=== PATIENT | male | born 1950 | race Caucasian/White ===

== ENCOUNTER 2021-12-10 14:52 | Inpatient (IN) | payer MEDICARE, OTHER ==
[~2021-12-10] VITALS: Ht 172.7 cm; Wt 97.5 kg
--- NOTE | 2021-12-10 14:55 | NUR ---
ABBY RA100 FROM [facility] ([facility]) WITH C/O SOB, PT TESTED POSTIVIE FOR COVID-19 PER EMS. PT ARRIVES ON 100% NRB MASK AT O2 15L, PT DIRECTLY TO ROOM 3, AT BEDSIDE FOR MSE.
[2021-12-10 15:29] LABS: ABG BASE EXCESS -4.4 mmol/L; ABG HCO3 19.6 mmol/L; ABG PCO2 33.6 mmHg (35.0-45.0); ABG PH 7.384 (7.350-7.450); ABG SITE RIGHT BRACHIAL; COHb 0.7 % (0.5-1.5); MetHb 0.4 % (0.0-1.5); O2Hb 81.9 % (94.0-97.0); VENT MODE Nasal Cannula
[2021-12-10] MEDS ORDERED: ONDANSETRON 4 MG/2 ML VIAL IV ONE (15:30)
[2021-12-10] MEDS ORDERED: NITR0.4T48 SL (15:30)
[2021-12-10] MEDS ORDERED: NA P133E RC (15:30)
[2021-12-10] MEDS ORDERED: DOCU-141 PO (15:30)
[2021-12-10] MEDS ORDERED: FERR325T28 PO (15:30)
[2021-12-10] MEDS ORDERED: METO-357 PO (15:30)
[2021-12-10] MEDS ORDERED: HYDR-4209 PO (15:30)
[2021-12-10] MEDS ORDERED: MAGN400O6 PO (15:30)
[2021-12-10] MEDS ORDERED: POLY119P17 PO (15:30)
[2021-12-10] MEDS ORDERED: CALC-261 PO (15:30)
[2021-12-10] MEDS ORDERED: AMLO-212 PO (15:30)
[2021-12-10] MEDS ORDERED: ASPI81TA31 PO (15:30)
[2021-12-10] MEDS ORDERED: NICO-780 TD (15:30)
[2021-12-10] MEDS ORDERED: BISA10SU61 RC (15:30)
[2021-12-10] MEDS ORDERED: ACET-2154 PO (15:30)
[2021-12-10] MEDS ORDERED: ISOS60TA72 PO (15:30)
[2021-12-10] MEDS ORDERED: CRAN425C6 PO (15:30)
[2021-12-10] MEDS ORDERED: CEPH500T PO (15:30)
[2021-12-10] MEDS ORDERED: ATOR20TA PO (15:30)
[2021-12-10] MEDS ORDERED: TAMS-3 PO (15:30)
[2021-12-10] MEDS ORDERED: SENN-261 PO (15:30)
[2021-12-10 15:41] LABS: HEMATOCRIT 43.4 % (36.7-47.1); MEAN CORPUSCULAR HEMOGLOBIN 31.4 uug (23.8-33.4); MEAN CORPUSCULAR VOLUME 91.1 fL (73.0-96.2); PLATELET COUNT (AUTO) 94 K/uL (152-348)
[2021-12-10 15:50] LABS: BILIRUBIN,TOTAL 0.9 mg/dL (0.2-1.0); TOTAL PROTEIN, SERUM 7.5 g/dL (6.4-8.2)
[2021-12-10] MEDS ORDERED: ONDANSETRON 4 MG/2 ML VIAL ONE (15:59)
[2021-12-10 16:11] LABS: EOSINOPHILS % (MANUAL) 1 % (0-8); LYMPHOCYTES % (MANUAL) 19 % (20-40); MONOCYTES % (MANUAL) 2 % (2-10); NEUTROPHILS % (MANUAL) 78 % (42-75)
[2021-12-10] MEDS ORDERED: MAGNESIUM HYDROXIDE 30 ML LIQUID UDC PO PRN (17:45)
[2021-12-10] MEDS ORDERED: FLEET ENEMA 133 ML BOTTLE RC PRN (17:45)
[2021-12-10] MEDS ORDERED: HYDROCODONE/APAP 5-325MG TABLET PO PRN (17:45)
[2021-12-10] MEDS ORDERED: BISACODYL 10 MG SUPP.RECT RC PRN (17:45)
[2021-12-10] MEDS ORDERED: DEXAMETHASONE SOD PHOSPHATE 4 MG INJ IV ONE (17:45)
[2021-12-10] MEDS ORDERED: ACETAMINOPHEN 325 MG TABLET PO PRN (17:45)
[2021-12-10] MEDS ORDERED: NITROGLYCERIN 0.4 MG/TAB BOTTLE SL PRN (17:45)
[2021-12-10] MEDS ORDERED: DEXAMETHASONE SOD PHOSPHATE 4 MG INJ ONE (17:46)
--- NOTE | 2021-12-10 17:54 | NUR ---
Pt keeps asking for a diaper change, but diaper is clean and dry. 98.2 Oral temp
[2021-12-10] MEDS ORDERED: ONDANSETRON 4 MG/2 ML VIAL IV PRN (18:00)
[2021-12-10] MEDS ORDERED: IV NS 1000 ML 1,000 ML IV PRN (18:00)
--- NOTE | 2021-12-10 19:12 | NUR ---
Assumed care of patient. Resting in bed on 2L NC. IV site intact. No distress at this time.
[2021-12-10] MEDS ORDERED: ACETAMINOPHEN ES 500 MG TABLET ONE (19:26)
[2021-12-10] MEDS ORDERED: ACETAMINOPHEN ES 500 MG TABLET PO ONE (19:30)
--- NOTE | 2021-12-10 20:55 | NUR ---
Report called to Pinky NAVARRETE, patient going to room 316.
[2021-12-10] MEDS ORDERED: ATORVASTATIN 20 MG TABLET PO SCH (21:00)
[2021-12-10] MEDS ORDERED: TAMSULOSIN HCL 0.4 MG CAP.SR.24H PO SCH (21:00)
[2021-12-10] MEDS ORDERED: SENNOSIDES 1 TABLET PO SCH (21:00)
--- NOTE | 2021-12-10 21:15 | NUR ---
Lab called critical value for lactic of 7.3. Dr. Rangel notified with orders to endorse to oncoming nurse and admitting doctor.
--- NOTE | 2021-12-10 21:43 | NUR ---
Pt. admitted to [facility], under care of Dr. Haynes. Brought to floor in stable condition. No distress noted and no changes in LOC during transfer.
--- NOTE | 2021-12-10 22:00 | NUR ---
Received patient from er at 2200 assisted er nurse Katelyn transferring from [facility] to [facility]. Pt cleaned and dried. Pt requesting water while putting on gown. Ask pt about personal belonging pt was able to answer with one word answer. afterward gave pt water to drink, pt drank three sips and began to choke on the third one.Left naveen Velasquez with patient finish changing gown. Addendum: 12/11/21 at 0642 by [facility] RN1 RN The above statement written in order will rewrite above information
--- NOTE | 2021-12-10 22:00 | NUR ---
Received from the ER a 71 y/o male dx of covid 19 pt is dnr/dni help assist pt to bed from [facility]. cleaned pt apply new gown.Pt asking for water gave three sips coughed on third sip asked to drink water slowly pt tolerated it well.pt is on oxygen 3Lnc tolerating well no signs of distress noted. Assessed pt for skin breakdown none noted. Sacral area is red with blanchable redness. No signs of skin breakdown.Pt has NKA, 02 2L NC Pt has suprapubic cath,Lt Nephrostomy cahtether,Rt wrist 22 22gauge. Pt also hx of cabbage,cad,htn,copd,dm, cystomy,bph.
--- NOTE | 2021-12-10 22:19 | NUR ---
DR. JACEY CURIEL NOTIFIED REGARDING LACTIC ACID OF 7.3, NO NEW ORDERS GIVEN.
--- NOTE | 2021-12-10 23:00 | NUR ---
Checked patient appears nonresponsive got a nonbreather for pt was showing signs of brighting afterward attempted to assist with patient care.check the carotid was a pulse.but faint than Second nurse came and checked showed Evonie came has sim pulse 30's from the monitor. Pt was sweating profusely.
--- NOTE | 2021-12-10 23:49 | NUR ---
Pt on Tele changed from ST to SB.
--- NOTE | 2021-12-10 23:49 | NUR ---
Pt heart rate showed asystole on the tele monitor and Will continue to monitor.
--- NOTE | 2021-12-10 23:54 | NUR ---
Pt becomes pale,cold and clammy. Pt apneic for 5 minutes,pupils fixed and dilated. No audible heart tone,breath sound for 1 minute. No palpable pulses for 1 minute. No corneal reflexes appropriate staff notified.
--- NOTE | 2021-12-10 23:59 | NUR ---
Pt becomes pale,cold and clammy. Pt apneic for 5 minutes pupils fixed and dilated. No audible heart tones breath sounds for 1 minute. No palpable pulses for 1 minute. No corneal reflexes. Pt pronounced at 2359 by 2 nurses. Legacy one called by charge nurse. Addendum: 12/11/21 at 0615 by [facility] RN1 RN Information above written in error. Will rewrite the above statement.
--- NOTE | 2021-12-10 23:59 | NUR ---
Pt was assessed by 2 nurses Hal and Pinky Edouard checked carotid pulse, radial pulse and apical pulse no response. Inform charge nurse bhupinder> She states" I will take care of it. Addendum: 12/11/21 at 0541 by [facility]RY [facility] RN1 RN Amend statement above and the time written in error.
--- NOTE | 2021-12-10 23:59 | NUR ---
Pt becomes pale,cold,and clammy. Pt is apneic for 5 minutes with pupil fixed and dilated. No audible heart sounds when auscultated. No palpable pulses for 1 minute.Pt pronounced.
--- NOTE | 2021-12-11 00:05 | NUR ---
Daniella Brown notified. Postmortem care rendered and appropriate paperworks completed. Addendum: 12/11/21 at 0813 by [facility] RN1 RN Information written in error will rewrite the above information.
--- NOTE | 2021-12-11 00:05 | NUR ---
Notified pt nearest relative Ms. Marcela Brown but no answer left a message.
--- NOTE | 2021-12-11 00:07 | NUR ---
Postmortem care completed by nurse and side laster staple body bag and tag by nurse,
--- NOTE | 2021-12-11 02:30 | NUR ---
[place] [facility]
[2021-12-11] MEDS ORDERED: METOPROLOL SUCCINATE XL 50 MG TAB.SR.24H PO SCH (09:00)
[2021-12-11] MEDS ORDERED: DOCUSATE SODIUM 100 MG CAPSULE PO SCH (09:00)
[2021-12-11] MEDS ORDERED: CALCIUM CARB/VITAMIN D 500MG-200UNITS TABLET PO SCH (09:00)
[2021-12-11] MEDS ORDERED: DEXAMETHASONE SOD PHOSPHATE 4 MG INJ IV SCH (09:00)
[2021-12-11] MEDS ORDERED: ISOSORBIDE MONONITRATE 60 MG TAB.SR.24H PO SCH (09:00)
[2021-12-11] MEDS ORDERED: ASPIRIN 81 MG TAB.CHEW PO SCH (09:00)
[2021-12-11] MEDS ORDERED: NICOTINE 21 MG/24HR PATCH TD SCH (09:00)
[2021-12-11] MEDS ORDERED: AMLODIPINE 5 MG TABLET PO SCH (09:00)
== END 2021-12-11 02:30 | DRG 871 ==
LOC: ER 14:52 → TELE3 21:04
DX: A41.89 Other specified sepsis (principal); U07.1 COVID-19; J96.01 Acute respiratory failure with hypoxia; N17.9 Acute kidney failure, unspecified; Z66 Do not resuscitate; D69.6 Thrombocytopenia, unspecified; D72.819 Decreased white blood cell count, unspecified; E11.22 Type 2 diabetes mellitus with diabetic chronic kidney disease; E78.5 Hyperlipidemia, unspecified; I12.9 Hypertensive chronic kidney disease with stage 1 through stage 4 chronic kidney disease, or unspecified chronic kidney disease; I25.10 Atherosclerotic heart disease of native coronary artery without angina pectoris; J44.9 Chronic obstructive pulmonary disease, unspecified; N18.9 Chronic kidney disease, unspecified; N40.0 Benign prostatic hyperplasia without lower urinary tract symptoms; Z95.1 Presence of aortocoronary bypass graft; Z93.6 Other artificial openings of urinary tract status; I49.9 Cardiac arrhythmia, unspecified
CPT/HCPCS: 36415; 36600; 70030-TC; 71045; 83605; 84484; 85025; 86140; 93005; A4663; A9150; G0378; J1100; J2405